=== PATIENT | male | born 1985 | race Two or more races ===

== ENCOUNTER 2025-03-12 08:59 | Emergency (ER) | payer MEDICAID, SELFPAY ==
[2025-03-12 09:04] VITALS: BP 122/72; PULSE 104; RESP 18; TEMP 36.9; O2SAT 96; BMI 28.7
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
[2025-03-12] MEDS: IBUPROFEN TAB 400 MG TABLET 800 MG PO (09:14)
--- NOTE | 2025-03-12 10:49 | PD.EDFALL ---
ED Fall Injury RME/HPI General Chief Complaint: Fall Stated Complaint: right knee injury after fall Time Seen by Provider: 03/12/25 09:03 Arrival date/time: 03/12/25 08:59 39-year-old male presents to the emergency department for complaints of right knee pain after fall Limitations: no limitations Related Data Previous Rx's ?Medication ?Instructions ?Recorded ibuprofen 800 mg tablet 800 mg PO TID PRN pain #30 tabs 09/22/23 ibuprofen 600 mg tablet 600 mg PO Q6H #30 tabs 03/12/25 Allergies Allergy/AdvReac Type Severity Reaction Status Date / Time No Known Allergies Allergy Verified 09/22/23 20:08 Review of Systems Review of Systems Systems Reviewed: All systems reviewed, normal except as documented Constitutional Constitutional: Reports system reviewed and no additional complaints, except as documented, Denies fever(s) and Denies headache(s) Eyes Eyes: Reports system reviewed and no additional complaints, except as documented and Denies blurry vision ENT Ears, Nose, Mouth, and Throat: Reports system reviewed and no additional complaints, except as documented, Denies headache(s), Denies nasal congestion and Denies nasal discharge Cardiovascular Cardiovascular: Reports system reviewed and no additional complaints, except as documented, Denies chest pain and Denies dyspnea Respiratory Respiratory: Reports system reviewed and no additional complaints, except as documented, Denies chest congestion, Denies cough and Denies dyspnea Gastrointestinal Gastrointestinal: Reports system reviewed and no additional complaints, except as documented and Denies abdominal pain Musculoskeletal Musculoskeletal: Reports system reviewed and no additional complaints, except as documented, Reports abnormal gait, Reports arthralgias and Denies deformity Integumentary/Breasts Skin/Breast: Reports system reviewed and no additional complaints, except as documented and Denies rash Neurologic Neurologic: Reports system reviewed and no additional complaints, except as documented, Reports as per HPI, Reports abnormal gait and Denies headache(s) Past Medical History Social History SMOKING STATUS: Never smoker ED Exam General Limitations: Present no limitations General appearance: Present alert and in no apparent distress Head Head exam: Present atraumatic Eye Eye exam: Present normal appearance, PERRL and EOMI ENT ENT exam: Present normal exam, normal oropharynx and mucous membranes moist Neck Neck exam: Present normal inspection, full ROM and trachea midline Chest Chest inspection: Present normal inspection and symmetric chest wall rise Respiratory Respiratory exam: Present normal lung sounds bilaterally Cardiovascular Cardiovascular exam: Present regular rate, normal rhythm and normal heart sounds Abdominal Exam Abdominal exam: Present soft and normal bowel sounds Extremities Exam Extremities exam: Present full ROM, tenderness (Right knee pain) and normal capillary refill; Absent pedal edema, joint swelling or calf tenderness Back Exam Back exam: Present normal inspection and full ROM Neurological Exam Neurological exam: Present alert, oriented X3 and CN II-XII intact Psychiatric Psychiatric exam: Present normal affect and normal mood Skin Skin exam: Present warm, dry, intact and normal color Course Quality Measures none Orders Category Date Time Status XR knee RT 3V Stat Exams 03/12/25 09:11 Completed Ibuprofen Tab [Motrin Tab] Med 03/12/25 09:11 Discontinued 800 mg PO X1 ONE Vital Signs Vital signs: Vital Signs Temperature 98.4 F 03/12/25 09:04 Pulse Rate 104 H 03/12/25 09:04 Respiratory Rate 18 03/12/25 09:04 Blood Pressure 122/72 03/12/25 09:04 Pulse Oximetry (%) 96 03/12/25 09:04 Oxygen Delivery Method Room Air 03/12/25 09:04 O2 saturation 96% on room air within normal limits Fall MDM Narrative MDM Narrative:: 39-year-old male presents to the emergency department for complaints of right knee pain after fall Imaging obtained no acute emergent findings noted Patient walks with steady gait Patient discharged home in no distress to follow-up with primary care doctor in the next 24 to 48 hours and for any worsening symptoms to return to the ER immediately Patient data External records reviewed:: [facility] previous records Clinical information provided by:: patient Social determinants that could affect healthcare access:: none Patient has the following chronic illnesses:: None How is presenting disease/condition affected by chronic disease/condition?: no chronic disease Evaluation data The following diagnostics were reviewed and interpreted by me:: radiology exam(s) Lab and/or radiology exams considered but not ordered:: Radiology obtain Interpretation Summary: Reviewed by me Medications / Prescriptions Medications or Prescriptions considered but not ordered:: Given Medication administrations:: Medication Administration History Discontinued Medications Ibuprofen (Ibuprofen Tab 400 Mg Tablet) 800 mg PO X1 ONE Stop: 03/12/25 09:12 Last Admin: 03/12/25 09:14 Dose: 800 mg Documented By: LT Given Consultations Consultation(s) initiated? (list below): No Diagnosis Fall Differential Diagnosis: other (Knee pain, knee strain, knee fracture) Most likely diagnosis given after review of the tests above:: Knee sprain Admission Indicated Admission indicated?: not indicated Admission Request Was there a request for admission?: No Disposition Plan Disposition Plan: Discharge Discharge Attestation Discharge Attestation: The patient and all family members were given an opportunity to ask questions and understood the discharge instructions. Discharge instructions specifically effects, indications for sooner follow up or return to the emergency department, and the expected course of current diagnosis. Patient condition: Stable Discharge Plan Plan Patient Disposition: HOME (Self Care) Discharge Disposition comment: Stable Prescriptions/Referrals Prescriptions/Med Rec: New ibuprofen 600 mg tablet 600 mg PO Q6H Qty: 30 0RF No Action ibuprofen 800 mg tablet 800 mg PO TID PRN (Reason: pain) Qty: 30 0RF Referrals: Oh Crisostomo MD [Primary Care Provider] - In 1 week Problem List Clinical Impression: Acute pain of right knee Patient/Caregiver Discharge Instructions Education Materials: ED Arthralgia Additional Instructions: Please follow up with your primary care doctor in the next 24-48hrs for any worsening symptoms return here immediately Print Language: Liberian Stand Alone Forms: Tere Award Info., Patient Portal Info Letter PA/PATRICIA Supervising Physician PA/PATRICIA Supervising Physician: dr keating
== END 2025-03-12 10:56 | disposition home or self-care (01) ==
PROVIDERS: Emergency Provider Emergency Medicine; PCP Family Medicine
DX: M25.561 Pain in right knee (principal)
CPT/HCPCS: 73562; 99283; A9270

== ENCOUNTER 2025-04-19 19:49 | Emergency (ER) | payer MEDICAID, SELFPAY ==
[2025-04-19 19:52] VITALS: BP 143/84; PULSE 69; RESP 19; TEMP 36.9; O2SAT 95
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
[2025-04-19] MEDS: ACETAMINOPHEN 500 MG TABLET 1000 MG PO (20:12)
== END 2025-04-19 20:14 | disposition home or self-care (01) ==
LOC: SERX 20:49
PROVIDERS: Emergency Provider Emergency Medicine
DX: Z02.89 Encounter for other administrative examinations (principal); S00.83XA Contusion of other part of head, initial encounter; W22.8XXA Striking against or struck by other objects, initial encounter; Y93.55 Activity, bike riding
CPT/HCPCS: 99282; A9270